=== PATIENT | male | born 1960 | race Hispanic/Latino ===

== ENCOUNTER 2017-08-02 09:39 | Emergency (ER) | payer BC ==
[2017-08-02 09:39] VITALS: BMI 40.0
[2017-08-02 09:59] VITALS: RESP 18; TEMP 98.2
[2017-08-02] MEDS ORDERED: Lidocaine 5% Patch TD STA (11:51)
[2017-08-02] MEDS ORDERED: Lidocaine 5% Patch TD ONE (12:02)
--- NOTE | 2017-08-02 13:06 | RAD ---
PROCEDURE: Cervical Spine Radiographs. HISTORY: Pain. COMPARISON: None. FINDINGS: BONES: Cervical lordotic straightening No fracture. Dens Intact. Anterior C5-6 spondylosis DISC SPACES: C5-6 disc space narrowing SOFT TISSUES: Normal. No prevertebral soft tissue swelling. OTHER FINDINGS: None. IMPRESSION: C5-6 spondylosis and degenerative disc space narrowing. No fracture or subluxation. Cervical lordotic straightening -muscle spasm versus positioning
--- NOTE | 2017-08-02 13:36 | C.PDOC ---
History Of Present Illness 57 y/o male presents to ED with complaints of neck pain since yesterday after lifting heavy objects at work. [place]. Patient reports he is limited to move neck ipsilateral secondary to pain. Patient denies numbness, tingling or any other complaints at this time. Time Seen by Provider: 08/02/17 10:20 Chief Complaint (Nursing): Back Pain History Per: Patient History/Exam Limitations: no limitations Onset/Duration Of Symptoms: Days Current Symptoms Are (Timing): Still Present Quality Of Discomfort: "Pain" Past Medical History Reviewed: Historical Data, Nursing Documentation, Vital Signs Vital Signs: Last Vital Signs Temp 98.2 F 08/02/17 09:57 Pulse 72 08/02/17 13:46 Resp 18 08/02/17 13:46 BP 132/75 08/02/17 13:46 Pulse Ox 97 08/02/17 16:34 - Medical History PMH: HTN Surgical History: No Surg Hx - [facility] CORONAR ARTERIOGR-2 CATH (12/27/14) INSERTION OF TWO VASCULAR STENTS (12/27/14) INSRT OF DRUG-ELUTING CORON ARTERY STENTS(S) (12/27/14) LEFT HEART CARDIAC CATH (12/27/14) LT HEART ANGIOCARDIOGRAM (12/27/14) PERCUTANEOUS TRANSLUMINAL CORONARY ANGIOPLASTY [PTCA] (12/27/14) PROCEDURE ON SINGLE VESSEL (12/27/14) Family History: States: No Known Family Hx - Social History Hx Alcohol Use: No Hx Substance Use: No - Immunization History Hx Tetanus Toxoid Vaccination: No Hx Influenza Vaccination: No Hx Pneumococcal Vaccination: No Review Of Systems Except As Marked, All Systems Reviewed And Found Negative. Constitutional: Negative for: Fever, Chills Musculoskeletal: Positive for: Neck Pain. Negative for: Back Pain Skin: Negative for: Rash Neurological: Negative for: Numbness Physical Exam - Physical Exam Appears: Non-toxic Skin: Warm, Dry Head: Atraumatic, Normacephalic Eye(s): bilateral: Normal Inspection, EOMI Oral Mucosa: Moist Neck: Decreased ROM, Other (Torticollis, head tilted to right,) Chest: Symmetrical Back: No CVA Tenderness, Muscle Spasm, Other (Tenderness to lateral trapezius muscle and mastoid tenderness) Neurological/Psych: Oriented x3, Normal Motor, Normal Sensation ED Course And Treatment O2 Sat by Pulse Oximetry: 97 (RA) Pulse Ox Interpretation: Normal - Other Rad Cervical spine X-Ray: Interpreted by Me, Viewed By Me Interpretation: PROCEDURE: Cervical Spine Radiographs. HISTORY: Pain. COMPARISON: None. FINDINGS: BONES: Cervical lordotic straightening. No fracture. Dens Intact. Anterior C5-6 spondylosis. DISC SPACES: C5-6 disc space narrowing. SOFT TISSUES: Normal. No prevertebral soft tissue swelling. OTHER FINDINGS: None. IMPRESSION: C5-6 spondylosis and degenerative disc space narrowing. No fracture or subluxation. Cervical lordotic straightening - muscle spasm versus positioning Progress Note: Patient was treated with Lidoderm, Toradol and Valium with improvement. On re-evaluation, patient feels better, no neuro deficit and is stable to be d/c home. Disposition - Disposition Referrals: Bhavesh Hill DO [[facility]] - Disposition: HOME/ ROUTINE Disposition Time: 13:34 Condition: STABLE Additional Instructions: Follow up with your PMD within 1-2 days. Return to Ed if feel worse. 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 - Scribe Statement The provider has reviewed the documentation as recorded by the Pabloibmarcelo Ibarra All medical record entries made by the Cecil were at my direction and personally dictated by me. I have reviewed the chart and agree that the record accurately reflects my personal performance of the history, physical exam, medical decision making, and the department course for this patient. I have also personally directed, reviewed, and agree with the discharge instructions and disposition.
[2017-08-02 13:47] VITALS: BP 132/75; PULSE 72
[2017-08-02 16:20] VITALS: O2SAT 97
== END 2017-08-02 13:49 | disposition home or self-care (01) ==
LOC: C.ER 09:39
DX: M43.6 Torticollis (principal)
CPT/HCPCS: 72040; 96372; 99283; J1885

== ENCOUNTER 2018-11-13 08:00 | Outpatient (CLI) | payer BC | END 2018-11-13 08:01 | disposition home or self-care (01) | LOC: C.RADH 08:00 ==